=== PATIENT | male | born 1995 | race Hispanic/Latino ===

== ENCOUNTER 2021-06-04 22:53 | Emergency (ER) | payer SELFPAY ==
[2021-06-04 23:54] LABS: Bilirubin,Urine NEG (Negative); Blood,Urine NEG (Negative); Color,Urine Colorless (Yellow); Protein,Urine <15 mg/dL mg/dL (Negative); Urobilinogen,Urine < 2.0 mg/dL (<2.0); WBC,Urine < 1.0 /HPF (0.0-6.0)
[2021-06-05 00:02] LABS: Amphetamine Screen,Urine PRESUMPTIVE NEGATIVE; Benzodiazepines Screen,Urine PRESUMPTIVE NEGATIVE; Cannabinoid Screen,Urine PRESUMPTIVE NEGATIVE; Cocaine Screen,Urine PRESUMPTIVE NEGATIVE; Methadone Screen,Urine PRESUMPTIVE NEGATIVE; Opiate Screen,Urine PRESUMPTIVE NEGATIVE
[2021-06-05] MEDS ORDERED: HALOPERIDOL LACTATE 5 MG/1 ML INJ IM PRN (01:57)
--- NOTE | 2021-06-05 01:58 | Emergency Department Report ---
ED General Adult HPI - General Chief complaint: Psych Stated complaint: MH EVAL/SUICIDAL THOUGHTS Time Seen by Provider: 06/05/21 00:49 Source: patient Mode of arrival: Ambulatory Limitations: No Limitations - History of Present Illness Initial comments: The patient is a 25-year-old gentleman with a history of psychiatric disease, who presents to the ER with a complaint of suicidality, seeing demons, and having hallucinations. He denies physical pain. -: Gradual Consistency: constant Improves with: none Worsens with: none Associated Symptoms: denies other symptoms - Related Data Allergies Allergy/AdvReac Type Severity Reaction Status Date / Time No Known Allergies Allergy Unverified 06/04/21 23:01 ED Review of Systems ROS: Stated complaint: MH EVAL/SUICIDAL THOUGHTS Other details as noted in HPI Comment: All other systems reviewed and negative Psychiatric: anxiety, auditory hallucinations, visual hallucinations, suicidal thoughts ED Physical Exam - General Limitations: No Limitations General appearance: alert, in no apparent distress - Head Head exam: Present: atraumatic, normocephalic - Eye Eye exam: Present: normal appearance, EOMI. Absent: nystagmus - ENT ENT exam: Present: normal exam, normal orophraynx, mucous membranes moist, normal external ear exam - Neck Neck exam: Present: normal inspection, full ROM. Absent: tenderness, meningismus - Respiratory Respiratory exam: Present: normal lung sounds bilaterally. Absent: respiratory distress, wheezes, rales, rhonchi, stridor, decreased breath sounds - Cardiovascular Cardiovascular Exam: Present: regular rate, normal rhythm, normal heart sounds. Absent: bradycardia, tachycardia, irregular rhythm, systolic murmur, diastolic murmur, rubs, gallop - GI/Abdominal GI/Abdominal exam: Present: soft. Absent: distended, tenderness, guarding, rebound, rigid, pulsatile mass - Rectal Rectal exam: Present: deferred - Extremities Exam Extremities exam: Present: normal inspection, full ROM, other (2+ pulses noted in the bilateral upper and lower extremities. There is no palpable cord. negative Homans sign. Muscular compartments are soft. The pelvis is stable.). Absent: pedal edema, calf tenderness - Back Exam Back exam: Present: normal inspection, full ROM. Absent: tenderness, CVA tenderness (R), CVA tenderness (L), paraspinal tenderness, vertebral tenderness - Neurological Exam Neurological exam: Present: alert, oriented X3, normal gait, other (No facial droop. Tongue midline. Extraocular movements intact bilaterally. Facial sensation intact to light touch in V1, V2, V3 distribution bilaterally. 5 and a 5 strength in 4 extremities. Sensation intact to light touch in 4 extremities.). Absent: motor sensory deficit - Psychiatric Psychiatric exam: Present: flat affect, suicidal ideation - Skin Skin exam: Present: warm, dry, intact, normal color. Absent: rash ED Course Vital Signs 06/04/21 06/04/21 22:56 23:37 Temperature 98.4 F Pulse Rate 83 Respiratory 18 16 Rate Blood Pressure 130/78 O2 Sat by Pulse 96 100 Oximetry ED Medical Decision Making - Lab Data Result diagrams: 06/05/21 02:01 06/05/21 02:01 Vital Signs 06/04/21 06/04/21 22:56 23:37 Temperature 98.4 F Pulse Rate 83 Respiratory 18 16 Rate Blood Pressure 130/78 O2 Sat by Pulse 96 100 Oximetry Lab Results 06/04/21 06/04/21 06/05/21 Range/Units 23:37 23:37 02:01 WBC (4.5-11.0) K/mm3 RBC (3.65-5.03) M/mm3 Hgb (11.8-15.2) gm/dl Hct (35.5-45.6) % MCV (84-94) fl MCH (28-32) pg MCHC (32-34) % RDW (13.2-15.2) % Plt Count (140-440) K/mm3 Lymph % (Auto) Williams % (Auto) Eos % (Auto) Baso % (Auto) Lymph # (Auto) Williams # (Auto) Eos # (Auto) Baso # (Auto) Seg Neutrophils % Seg Neutrophils # Sodium (137-145) mmol/L Potassium (3.6-5.0) mmol/L Chloride (98-107) mmol/L Carbon Dioxide (22-30) mmol/L Anion Gap mmol/L BUN (9-20) mg/dL Creatinine (0.8-1.3) mg/dL Estimated GFR ml/min BUN/Creatinine Ratio % Glucose (75-100) mg/dL Calcium (8.4-10.2) mg/dL Urine Color Colorless (Yellow) Urine Turbidity Clear (Clear) Urine pH 8.0 H (5.0-7.0) Ur Specific [place] 1.002 L (1.003-1.030) Urine Protein <15 mg/dl (Negative) mg/dL Urine Glucose (UA) Neg (Negative) mg/dL Urine Ketones Tr (Negative) mg/dL Urine Blood Neg (Negative) Urine Nitrite Neg (Negative) Urine Bilirubin Neg (Negative) Urine Urobilinogen < 2.0 (<2.0) mg/dL Ur Leukocyte Esterase Neg (Negative) Urine WBC (Auto) < 1.0 (0.0-6.0) /HPF Urine RBC (Auto) 1.0 (0.0-6.0) /HPF Salicylates < 0.3 L (2.8-20.0) mg/dL Urine Opiates Screen Presumptive negative Urine Methadone Screen Presumptive negative Acetaminophen (10.0-30.0) ug/mL Ur Barbiturates Screen Presumptive negative Ur Phencyclidine Scrn Presumptive negative Ur Amphetamines Screen Presumptive negative U Benzodiazepines Scrn Presumptive negative Urine Cocaine Screen Presumptive negative U Marijuana (THC) Screen Presumptive negative Drugs of Abuse Note Disclamer Plasma/Serum Alcohol (0-0.07) % 06/05/21 06/05/21 06/05/21 Range/Units 02:01 02:01 02:01 WBC (4.5-11.0) K/mm3 RBC (3.65-5.03) M/mm3 Hgb (11.8-15.2) gm/dl Hct (35.5-45.6) % MCV (84-94) fl MCH (28-32) pg MCHC (32-34) % RDW (13.2-15.2) % Plt Count (140-440) K/mm3 Lymph % (Auto) Williams % (Auto) Eos % (Auto) Baso % (Auto) Lymph # (Auto) Williams # (Auto) Eos # (Auto) Baso # (Auto) Seg Neutrophils % Seg Neutrophils # Sodium 132 L (137-145) mmol/L Potassium 4.0 (3.6-5.0) mmol/L Chloride 94.2 L (98-107) mmol/L Carbon Dioxide 23 (22-30) mmol/L Anion Gap 19 mmol/L BUN 9 (9-20) mg/dL Creatinine 0.9 (0.8-1.3) mg/dL Estimated GFR > 60 ml/min BUN/Creatinine Ratio 10 % Glucose 101 H (75-100) mg/dL Calcium 9.7 (8.4-10.2) mg/dL Urine Color (Yellow) Urine Turbidity (Clear) Urine pH (5.0-7.0) Ur Specific [place] (1.003-1.030) Urine Protein (Negative) mg/dL Urine Glucose (UA) (Negative) mg/dL Urine Ketones (Negative) mg/dL Urine Blood (Negative) Urine Nitrite (Negative) Urine Bilirubin (Negative) Urine Urobilinogen (<2.0) mg/dL Ur Leukocyte Esterase (Negative) Urine WBC (Auto) (0.0-6.0) /HPF Urine RBC (Auto) (0.0-6.0) /HPF Salicylates (2.8-20.0) mg/dL Urine Opiates Screen Urine Methadone Screen Acetaminophen 5.0 L (10.0-30.0) ug/mL Ur Barbiturates Screen Ur Phencyclidine Scrn Ur Amphetamines Screen U Benzodiazepines Scrn Urine Cocaine Screen U Marijuana (THC) Screen Drugs of Abuse Note Plasma/Serum Alcohol < 0.01 (0-0.07) % 06/05/21 Range/Units 02:01 WBC 7.0 (4.5-11.0) K/mm3 RBC 4.71 (3.65-5.03) M/mm3 Hgb 14.1 (11.8-15.2) gm/dl Hct 40.4 (35.5-45.6) % MCV 86 (84-94) fl MCH 30 (28-32) pg MCHC 35 H (32-34) % RDW 13.2 (13.2-15.2) % Plt Count 282 (140-440) K/mm3 Lymph % (Auto) [employer] Williams % (Auto) [employer] Eos % (Auto) [employer] Baso % (Auto) [employer] Lymph # (Auto) [employer] Williams # (Auto) [employer] Eos # (Auto) [employer] Baso # (Auto) [employer] Seg Neutrophils % [employer] Seg Neutrophils # [employer] Sodium (137-145) mmol/L Potassium (3.6-5.0) mmol/L Chloride (98-107) mmol/L Carbon Dioxide (22-30) mmol/L Anion Gap mmol/L BUN (9-20) mg/dL Creatinine (0.8-1.3) mg/dL Estimated GFR ml/min BUN/Creatinine Ratio % Glucose (75-100) mg/dL Calcium (8.4-10.2) mg/dL Urine Color (Yellow) Urine Turbidity (Clear) Urine pH (5.0-7.0) Ur Specific [place] (1.003-1.030) Urine Protein (Negative) mg/dL Urine Glucose (UA) (Negative) mg/dL Urine Ketones (Negative) mg/dL Urine Blood (Negative) Urine Nitrite (Negative) Urine Bilirubin (Negative) Urine Urobilinogen (<2.0) mg/dL Ur Leukocyte Esterase (Negative) Urine WBC (Auto) (0.0-6.0) /HPF Urine RBC (Auto) (0.0-6.0) /HPF Salicylates (2.8-20.0) mg/dL Urine Opiates Screen Urine Methadone Screen Acetaminophen (10.0-30.0) ug/mL Ur Barbiturates Screen Ur Phencyclidine Scrn Ur Amphetamines Screen U Benzodiazepines Scrn Urine Cocaine Screen U Marijuana (THC) Screen Drugs of Abuse Note Plasma/Serum Alcohol (0-0.07) % - Medical Decision Making Differential diagnosis, including but not limited to: Psychosis, hallucinations, medical clearance for psychiatric placement Assessment and plan: 25-year-old gentleman, who is afebrile, with reassuring vital signs, experiencing hallucinations, suicidality and psychosis. He has a flat affect, but his physical exam is benign and unremarkable. Laboratory studies are unremarkable. Covid swab is pending to facilitate placement. 1013 filled out by myself. Psychiatric consultation is requested. At this point in time, the patient does not appear to have an immediate medical contraindication to psychiatric admission, evaluation, consultation and placement. The emergency room will follow along as the patient is Covid swab becomes available. He is not symptomatic from a Covid standpoint. Critical care attestation.: If time is entered above; I have spent that time in minutes in the direct care of this critically ill patient, excluding procedure time. ED Disposition Clinical Impression: Medical clearance for psychiatric admission Disposition: [address] [place] [address] Is pt being admited?: No Does the pt Need Aspirin: No Condition: Good Referrals: PRIMARY CARE, [Primary Care Provider] - 3-5 Days
[2021-06-05 02:36] LABS: Hematocrit 40.4 % (35.5-45.6); Hemoglobin 14.1 gm/dl (11.8-15.2); Mean Corpuscular HGB Conc 35 % (32-34); Mean Corpuscular Volume 86 fl (84-94); Platelet Count 282 K/mm3 (140-440); Red Blood Count 4.71 M/mm3 (3.65-5.03); Red Cell Distribution Width 13.2 % (13.2-15.2)
[2021-06-05 02:46] LABS: BUN/Creatinine Ratio 10; Blood Urea Nitrogen 9 mg/dL (9-20); Calcium 9.7 mg/dL (8.4-10.2); Hemolysis Index 10
[2021-06-05] MEDS: LORazepam 2 MG/ML VIAL IM PRN ×2 (07:08→22:05)
--- NOTE | 2021-06-05 11:02 | Consultation ---
History of Present Illness - Reason for Consult Consult date: 06/05/21 Reason for consult: suicidal ideation - History of Present Psychiatric Illness The patient is a 25 year old male with history of schizoaffective disorder who presents to the ED with suicidal ideation. In my encounter with the patient, he is calm, alert and oriented x3. The patient reports that he has been hearing voices for the past 3 years and goes through his "highs and lows." The patient states that the voices became intense yesterday " I get tormented by demons and they decided to make yesterday unbearable." The patient endorses being depressed and also has suicidal ideation with a plan to " get opioids and overdose on it." He denies visual hallucinations. PAST PSYCHIATRIC HISTORY Diagnoses: Schizoaffective Suicide attempts or Self-harm behavior: Yes Prior psychiatric hospitalizations: Yes Substance Abuse history: " everything except for opioids Previous psychiatric medications tried: Lexapro, Trileptal, Trazodone, Vistaril Outpatient treatment: Denies PAST MEDICAL HISTORY: None reported Family Psychiatric History: None reported or documented SOCIAL HISTORY Marital Status:single Living Arrangements: custodial Employment Status: Unemployed Access to guns/weapons: Denies Education: Some college History of Abuse: none reported Legal History: none REVIEW OF SYSTEMS Constitutional: Negative for weight loss ENT: Negative for stridor Respiratory: Negative for cough or hemoptysis All other systems reviewed and are negative MENTAL STATUS EXAMINATION General Appearance and Behavior: Age appropriate, good hygiene, wearing appropriate clothes, poor eye contact, calm, cooperative Cooperation: Participating/engaged, but Guarded Psychomotor Behavior: Psychomotor normal Mood: Depressed Affect and affective range: congruent with stated mood Thought Process: Goal directed Thought Content: Hallucinations/ suicidal Speech: normal tone and pace Suicidal Ideation: Yes Homicidal Ideation: Denies Hallucinations: Auditory Delusions: Yes Impulse Control: Limited Insight and Judgment: Limited insight and judgment Memory: Limited Attention: Divided Orientation: Alert, oriented Assessment and Plan (1) Schizoaffective Treatment Plan 1013 continue home meds Start Zyprexa 5mg po BID Medical: per primary Sitter: defer to primary Disposition: Recommend acute psychiatric inpatient treatment Will follow. Thanks Case staffed with Dr. Benson Medications and Allergies Medications and Allergies Allergies Allergy/AdvReac Type Severity Reaction Status Date / Time No Known Allergies Allergy Unverified 06/04/21 23:01 Home Medications Medication Instructions Recorded Confirmed Last Taken Type Escitalopram Oxalate [Lexapro] 20 mg PO DAILY 06/05/21 06/05/21 Unknown History OXcarbazepine [Trileptal] 200 mg PO BID 06/05/21 06/05/21 Unknown History Active Meds: Active Medications Haloperidol Lactate (Haloperidol Lactate 5 Mg/1 Ml Inj) 5 mg IM Q6HR PRN PRN Reason: Agitation Lorazepam (Lorazepam 2 Mg/Ml Vial) 2 mg IM Q4HR PRN PRN Reason: Agitation Last Admin: 06/05/21 07:08 Dose: 2 mg Mental Status Exam - Vital signs Last Vital Signs Temp 98.4 F 06/04/21 22:56 Pulse 83 06/04/21 22:56 Resp 16 06/04/21 23:37 BP 130/78 06/04/21 22:56 Pulse Ox 100 06/05/21 08:39 Results Result Diagrams: 06/05/21 02:01 06/05/21 02:01 Abnormal lab results 06/04/21 06/05/21 06/05/21 Range/Units 23:37 02:01 02:01 MCHC (32-34) % Sodium (137-145) mmol/L Chloride (98-107) mmol/L Glucose (75-100) mg/dL Urine pH 8.0 H (5.0-7.0) Ur Specific [place] 1.002 L (1.003-1.030) Salicylates < 0.3 L (2.8-20.0) mg/dL Acetaminophen 5.0 L (10.0-30.0) ug/mL 06/05/21 06/05/21 Range/Units 02:01 02:01 MCHC 35 H (32-34) % Sodium 132 L (137-145) mmol/L Chloride 94.2 L (98-107) mmol/L Glucose 101 H (75-100) mg/dL Urine pH (5.0-7.0) Ur Specific [place] (1.003-1.030) Salicylates (2.8-20.0) mg/dL Acetaminophen (10.0-30.0) ug/mL All other labs normal.
[2021-06-05] MEDS ORDERED: NON-FORMULARY EACH (Escitalopram Oxalate [Lexapro] 20 MG Tablet) PO SCH (11:15)
[2021-06-05] MEDS ORDERED: ESCITALOPRAM 10 MG TAB ONE (11:45)
[2021-06-05] MEDS ORDERED: OXcarbazepine 150 MG TAB ONE ×2 (11:45→20:47)
[2021-06-05] MEDS ORDERED: OXcarbazepine 300 MG TAB PO SCH (12:00)
--- NOTE | 2021-06-05 14:22 | Event Note ---
Patient is medically clear. No acute issues. Covid negative.
[2021-06-05] MEDS: OXcarbazepine 300 MG TAB PO SCH (22:06)
--- NOTE | 2021-06-06 08:59 | Progress Note ---
Subjective - Reason for Consult Consult date: 06/06/21 Reason for consult: SI, hallucinating - Chief Complaint Chief complaint: The patient was seen today. He says he is hearing demons. He says he can't make out most of what the are saying, but he hears them saying "who May." When asked if he was suicidal, the patient replies "not right now." He denies homicidal thoughts. He verbalized feeling depressed. REVIEW OF SYSTEMS Constitutional: Negative for weight loss ENT: Negative for stridor Respiratory: Negative for cough or hemoptysis All other systems reviewed and are negative MENTAL STATUS EXAMINATION General Appearance and Behavior: Age appropriate, good hygiene, wearing appropriate clothes, poor eye contact, calm, cooperative Cooperation: Participating/engaged, but Guarded Psychomotor Behavior: Psychomotor normal Mood: Depressed Affect and affective range: congruent with stated mood Thought Process: Goal directed Thought Content: Hallucinations/ suicidal Speech: normal tone and pace Suicidal Ideation: Yes Homicidal Ideation: Denies Hallucinations: Auditory Delusions: Yes Impulse Control: Limited Insight and Judgment: Limited insight and judgment Memory: Limited Attention: Divided Orientation: Alert, oriented Assessment and Plan (1) Schizoaffective Treatment Plan 1013 continue home meds Increase Zyprexa 7.5mg po BID Medical: per primary Sitter: defer to primary Disposition: Recommend acute psychiatric inpatient treatment Will follow. Thanks Case staffed with Dr. Benson Mental Status Exam - Vital signs Last Vital Signs Temp 98.0 F 06/06/21 02:52 Pulse 56 L 06/06/21 02:52 Resp 16 06/06/21 02:52 BP 111/46 06/06/21 02:52 Pulse Ox 98 06/06/21 08:26
[2021-06-06] MEDS: ESCITALOPRAM 10 MG TAB PO SCH (09:36)
[2021-06-06] MEDS: OXcarbazepine 300 MG TAB PO SCH ×2 (09:36→22:00)
--- NOTE | 2021-06-06 10:12 | Emergency Department Report ---
Blank Doc - Documentation Documentation: Patient is resting comfortably. He is hopeful in getting into a psychiatric f acility. Psychiatric services has seen the patient. We are still awaiting placement.
[2021-06-07] MEDS ORDERED: OXcarbazepine 150 MG TAB ONE (02:00)
--- NOTE | 2021-06-07 08:22 | Emergency Department Report ---
Blank Doc - Documentation Documentation: Patient is resting comfortably. There were no events throughout the course of the night. We will continue to await psychiatric placement.
--- NOTE | 2021-06-07 09:39 | Progress Note ---
Subjective - Reason for Consult Consult date: 06/07/21 Reason for consult: SI - Chief Complaint Chief complaint: The patient was seen today. He is awake. He is calm and cooperative. The patient says he feels "good" when asked. He verbalizes still hearing the voices say "who Brittanie." The patient denies SI/HI. He says "not any more." He says he slept well and his appetite is good. REVIEW OF SYSTEMS Constitutional: Negative for weight loss ENT: Negative for stridor Respiratory: Negative for cough or hemoptysis All other systems reviewed and are negative MENTAL STATUS EXAMINATION General Appearance and Behavior: Age appropriate, good hygiene, wearing appropriate clothes, poor eye contact, calm, cooperative Cooperation: Participating/engaged, but Guarded Psychomotor Behavior: Psychomotor normal Mood: good Affect and affective range: congruent with stated mood Thought Process: Goal directed Thought Content: Hallucinations Speech: normal tone and pace Suicidal Ideation: Denies Homicidal Ideation: Denies Hallucinations: Auditory Delusions: None elicited Impulse Control: Limited Insight and Judgment: Limited insight and judgment Memory: Limited Attention: Divided Orientation: Alert, oriented Assessment and Plan (1) Schizoaffective Treatment Plan 1013 Zyprexa 7.5mg po BID Medical: per primary Sitter: defer to primary Disposition: Recommend acute psychiatric inpatient treatment Will follow. Thanks Case staffed with Dr. Benson Mental Status Exam - Vital signs Last Vital Signs Temp 98 F 06/07/21 06:00 Pulse 66 06/07/21 06:00 Resp 18 06/07/21 06:00 BP 110/60 06/07/21 06:00 Pulse Ox 99 06/07/21 06:00
[2021-06-07 09:43] VITALS: BP 119/62
[2021-06-07] MEDS: ESCITALOPRAM 10 MG TAB PO SCH (09:56)
[2021-06-07] MEDS: OXcarbazepine 300 MG TAB PO SCH (09:56)
[2021-06-07] MEDS: LORazepam 2 MG/ML VIAL IM PRN (15:31)
== END 2021-06-07 19:15 ==
LOC: ED 22:53
DX: Z13.30 Encounter for screening examination for mental health and behavioral disorders, unspecified (principal); Z20.822 Contact with and (suspected) exposure to COVID-19
CPT/HCPCS: 36415; 80048; 80307; 81001; 84295; 85025; 96372; 99285; J1630; J2060; J3490; U0003; 80320; G0480